=== PATIENT | male | born 1975 | race American Indian/Alaskan Native ===

== ENCOUNTER 2018-03-12 17:21 | Emergency (ER) ==
[2018-03-12 17:22] VITALS: BMI 27.1
[2018-03-12 17:28] VITALS: TEMP 97.6
--- NOTE | 2018-03-12 19:08 | ED.PDOC ---
General ED Provider: Dr. HUSSEIN ABURTO Stated Complaint: Severe sinus infection. Onset 2 weeks; Contacted Dr Simon office and was prescribed Amoxicillin and has taken for past week(day7 of 10). Experiencing severe pain in Rt Frontal sinus region. Time Seen by Physician: 18:40 Mode of Arrival: Walk-In Information Source: Patient Exam Limitations: No limitations Nursing and Triage Documentation Reviewed and Agree: Yes Reviewed sepsis parameters & appropriate labs ordered?: Yes Sepsis Protocol: For patient's 13 years and over: Temp is 96.8 and below OR 101 and greater Pulse >90 BPM Resp >20/minute Acutely Altered Mental Status Are patient's symptoms suggestive of a new infection, such as: -Pneumonia -Skin, Soft Tissue -Endocarditis -UTI -Bone, Joint Infection -Implantable Device -Acute Abdominal Infection -Wound Infection -Meningitis -Blood Stream Catheter Infection -Unknown <HUSSEIN ABURTO - Last Filed: 03/12/18 19:02> ED Provider: Dr. RAJAT ANDRADE System Inflammatory Response Syndrome: Not Applicable Sepsis Protocol: For patient's 13 years and over: Temp is 96.8 and below OR 101 and greater Pulse >90 BPM Resp >20/minute Acutely Altered Mental Status Are patient's symptoms suggestive of a new infection, such as: -Pneumonia -Skin, Soft Tissue -Endocarditis -UTI -Bone, Joint Infection -Implantable Device -Acute Abdominal Infection -Wound Infection -Meningitis -Blood Stream Catheter Infection -Unknown <RAJAT ANDRADE - Last Filed: 03/12/18 21:15> Chief Complaint: Non-specific Complaint EENT Complaint Exam - Nasal Complaint/Exam Onset/Duration: 2 weeks Symptoms Are: Still present Timing: Constant Initial Severity: Severe Current Severity: Severe Location: Right Aggravating: Reports: None Alleviating: Reports: None Associated Signs and Symptoms: Reports: Nasal congestion. Denies: Bruising, Hematuria, Hematochezia, Sinus pain, Nasal discharge, Foreign body, Abnormal coags Nasal Surgical History: Reports: None Foreign Body Present: No Differential Diagnoses: Hypertension, Sinusitis <HUSSEIN ABURTO - Last Filed: 03/12/18 19:02> Review of Systems - Review Of Systems Constitutional: Reports: No symptoms Eyes: Reports: No symptoms Ears, Nose, Mouth, Throat: Reports: Ear pain, Nose discharge. Denies: Throat pain, Throat swelling Respiratory: Reports: No symptoms Cardiac: Reports: No symptoms GI: Reports: No symptoms : Reports: No symptoms Musculoskeletal: Reports: No symptoms Skin: Reports: No symptoms Neurological: Reports: No symptoms <HUSSEIN ABURTO - Last Filed: 03/12/18 19:02> - Review Of Systems Constitutional: Reports: No symptoms Eyes: Reports: No symptoms Respiratory: Reports: No symptoms Cardiac: Reports: No symptoms GI: Reports: No symptoms : Reports: No symptoms Musculoskeletal: Reports: No symptoms Skin: Reports: No symptoms Neurological: Reports: Headache Endocrine: Reports: No symptoms Hematologic/Lymphatic: Reports: No symptoms All Other Systems: Reviewed and Negative <SEJALCLAUDIARAJAT Last Filed: 03/12/18 21:15> Past Medical History - Past Medical History Endocrine: Reports: None Cardiovascular: Reports: Hypertension Respiratory: Reports: None Hematological: Reports: None Gastrointestinal: Reports: None Genitourinary: Reports: None Neuro/Psych: Reports: None, Migraine, Other (cluster headaches) Musculoskeletal: Reports: None Cancer: Reports: None - Social History Smoking Status: Former smoker Hx Substance Use: No Alcohol Screening: None - Immunizations Tetanus Shot up to Date: Yes <HUSSEIN ABURTO - Last Filed: 03/12/18 19:02> - Past Medical History Previously Healthy: Yes Endocrine: Reports: None Cardiovascular: Reports: Hypertension Respiratory: Reports: None Hematological: Reports: None Gastrointestinal: Reports: None Genitourinary: Reports: None Neuro/Psych: Reports: Migraine, Other Musculoskeletal: Reports: None Cancer: Reports: None - Surgical History General Surgical History: Reports: None - Family History Family History: Reports: None <JOVITARAJAT Last Filed: 03/12/18 21:15> Physical Exam - Physical Exam Appearance: Well-appearing, No pain distress, Well-nourished Ill-appearing: Moderate Pain Distress: Moderate Eyes: PILY, EOMI, Conjunctiva clear ENT: Ears normal, Oropharynx normal, Rhinorrhea (marked tenderness to palpation rt frontal sinus to mid forehead region ), Erythema Neck: Supple Respiratory: Airway patent, Breath sounds clear, Breath sounds equal, Respirations nonlabored Cardiovascular: RRR, Pulses normal, No rub, No murmur GI/: Soft, Nontender, No masses, Bowel sounds normal, No Organomegaly Musculoskeletal: Normal strength, ROM intact, No edema, No calf tenderness Skin: Warm, Dry, Normal color Neurological: Sensation intact, Motor intact, Reflexes intact, Cranial nerves intact, Alert, Oriented Psychiatric: Affect appropriate, Mood appropriate <HUSSEIN ABURTO - Last Filed: 03/12/18 19:02> Interpretation - Radiology Interpretation Radiology Interpretation By: Radiologist Radiology Results: Positive (paranasal sinusitis) <RAJAT ANDRADE - Last Filed: 03/12/18 21:15> Re-Evaluation - Re-Evaluation Time of Re-Evaluation: 21:12 Status: Improved <RAJAT ANDRADE - Last Filed: 03/12/18 21:15> Physician Notification - Case Discussed Physician Notified: Dr Andrade -advised of case, treatment,/agrees to assume mgt <HUSSEIN ABURTO - Last Filed: 03/12/18 19:02> Critical Care Note - Critical Care Note Total Time (mins): 30 <RAJAT ANDRADE - Last Filed: 03/12/18 21:15> Course - Course Vital Signs: Temp Pulse Resp BP Pulse Ox 03/12/18 17:22 97.6 F 103 H 20 186/141 H 99 <HUSSEIN ABURTO - Last Filed: 03/12/18 19:02> - Course Hematology/Chemistry: 03/12/18 19:37 03/12/18 19:37 Orders, Labs, Meds: Lab Review 03/12/18 03/12/18 19:37 19:37 WBC 18.08 H RBC 5.54 Hgb 16.6 Hct 46.4 MCV 83.8 MCH 30.0 MCHC 35.8 H RDW Coeff of [place] 13.2 Plt Count 369 Immature Gran % (Auto) 1.3 Neut % (Auto) 71.5 Lymph % (Auto) 13.7 [place] % (Auto) 5.6 Eos % (Auto) 7.6 H Baso % (Auto) 0.3 Immature Gran # (Auto) 0.2 Neut # (Auto) 12.9 H Lymph # (Auto) 2.5 [place] # (Auto) 1.0 Eos # (Auto) 1.4 H Baso # (Auto) 0.1 Sodium 139 Potassium 3.6 Chloride 106 Carbon Dioxide 20 L Anion Gap 16.6 BUN 12 Creatinine 0.82 Estimated GFR (MDRD) 103.00 BUN/Creatinine Ratio 14.63 Glucose 101 H Calcium 10.0 Total Bilirubin 0.6 AST 21 ALT 60 Alkaline Phosphatase 70 Total Protein 7.7 Albumin 4.2 Globulin 3.5 Albumin/Globulin Ratio 1.20 Orders Category Date Time Status IV [ED IV/MEDIPORT/POWERPORT] .ONCE EMERGENCY 03/12/18 19:16 Active BLOOD CULTURE (ED ONLY) Stat LAB 03/12/18 19:37 Received CBC W/ AUTO DIFF Stat LAB 03/12/18 19:37 Completed CMP [COMPREHENSIVE METABOLIC PANEL] Stat LAB 03/12/18 19:37 Completed 0.9 % Sodium Chloride [Saline Flush] MEDS 03/12/18 19:16 Ordered 1 syr IVF PRN PRN Ampicillin Sodium/Sulbactam Na [Unasyn] MEDS 03/12/18 19:26 Discontinued 3 gm .ROUTE .STK-MED ONE Ampicillin Sodium/Sulbactam Na [Unasyn] 3 gm MEDS 03/12/18 19:18 Discontinued 0.9 % Sodium Chloride [Sodium Chloride] 100 ml IV ONCE Clonidine HCl [Catapres] MEDS 03/12/18 19:17 Discontinued 0.1 mg PO ONCE STA Dexamethasone 4 mg/ml Inj [Decadron 4 mg/ml Sdv] MEDS 03/12/18 19:19 Discontinued 4 mg IVP ONCE STA Sodium Chloride 0.9% [Sodium Chloride] 1,000 ml MEDS 03/12/18 19:[address] HEAD W/O CONTRAST Stat RADS 03/12/18 19:[address] SINUSES W/O CONTRAST Stat RADS 03/12/18 19:14 Completed Medications Generic Name Dose Route Start Last Admin Trade Name Freq PRN Reason Stop Dose Admin Sodium Chloride 1,000 mls @ 250 mls/hr 03/12/18 19:16 03/12/18 19:49 Sodium Chloride IV 03/12/18 23:15 250 mls/hr BOLUS STA Administration Sodium Chloride 1 syr 03/12/18 19:16 03/12/18 19:48 Saline Flush IVF 1 syr PRN PRN Administration To flush IV Discontinued Medications Generic Name Dose Route Start Last Admin Trade Name Freq PRN Reason Stop Dose Admin Clonidine 0.1 mg 03/12/18 19:17 03/12/18 19:47 Catapres PO 03/12/18 19:18 0.1 mg ONCE STA Administration Dexamethasone Sodium Phosphate 4 mg 03/12/18 19:19 03/12/18 19:48 Decadron 4 Mg/Ml Sdv IVP 03/12/18 19:20 4 mg ONCE STA Administration Ampicillin Sodium/Sulbactam 100 mls @ 100 mls/hr 03/12/18 19:18 03/12/18 19: 49 Sodium 3 gm/ Sodium Chloride IV 03/12/18 20:17 100 mls/hr ONCE STA Administration Vital Signs: Temp Pulse Resp BP Pulse Ox 03/12/18 21:10 138/94 H 03/12/18 17:22 97.6 F 103 H 20 186/141 H 99 <RAJAT ANDRADE - Last Filed: 03/12/18 21:15> Departure <HUSSEIN ABURTO - Last Filed: 03/12/18 19:02> - Departure Time of Disposition: 21:13 Pt referred to PMD for follow-up: Yes IPMP verified?: No Disposition Discussed With: Patient, Family <RAJAT ANDRADE - Last Filed: 03/12/18 21:15> - Departure Disposition: HOME SELF-CARE Discharge Problem: Headache, Sinusitis Hypertension Qualifiers: Hypertension type: essential hypertension Qualified Code(s): I10 - Essential ( primary) hypertension Condition: Stable Additional Instructions: Tylenol prn Increase Hydration probiotics Prescriptions: Cephalexin [Keflex] 500 mg PO Q12HR #14 capsule Prednisone 10 mg PO BIDWM #14 tablet Allergies/Adverse Reactions: Allergies No Known Allergies Allergy (Unverified 03/12/18 17:25) Home Medications: Ambulatory Orders Cephalexin [Keflex] 500 mg PO Q12HR #14 capsule 03/12/18 Prednisone 10 mg PO BIDWM #14 tablet 03/12/18
[2018-03-12] MEDS ORDERED: SODIUM CHLORIDE 1,000 ML IV STA (19:16)
[2018-03-12] MEDS ORDERED: CATAPRES PO STA (19:17)
[2018-03-12] MEDS ORDERED: UNASYN 3 GM in SODIUM CHLORIDE 100 ML IV STA (19:18)
[2018-03-12] MEDS ORDERED: DECADRON 4 MG/ML SDV IVP STA (19:19)
[2018-03-12] MEDS ORDERED: UNASYN ONE (19:26)
--- NOTE | 2018-03-12 20:06 | CT ---
EXAM: CT scan brain without contrast HISTORY: Headache COMPARISON: CT scan brain 05/21/2013 FINDINGS: Contiguous axial images were obtained from the skull base through the convexities without contrast utilizing 5-mm collimation. Sagittal and coronal reconstructions were imaged and reviewed.. The ventricles and CSF spaces are within normal limits. There are no acute intracranial findings. The visualized paranasal sinuses and mastoid air cells are clear. IMPRESSION: No acute intracranial findings
--- NOTE | 2018-03-12 20:06 | CT ---
EXAM: CT of the sinuses without contrast. HISTORY: Sinus pressure and congestion. Headache. PROCEDURE: Contiguous axial CT images of the sinuses without contrast with coronal and sagittal refo rmats. FINDINGS: There is minimal mucosal thickening in the frontal sinuses, ethmoid air cells, sphenoid sin us and maxillary sinuses. There is mucosal thickening narrowing the infundibulum of the right ostiom eatal complex and left ostiomeatal complex. The nasal turbinates are normal in appearance. The nasal septum is midline. The bones are intact. The orbits are normal in appearance. Impression: Paranasal sinusitis as described.
[2018-03-12 21:10] VITALS: BP 138/94
== END 2018-03-12 21:20 | disposition home or self-care (01) ==
LOC: ED 17:21
DX: J32.9 Chronic sinusitis, unspecified (principal); R51 Headache; I10 Essential (primary) hypertension
CPT/HCPCS: 36415; 80053; 85025; 87040; 96361; 96365; 96366; 96375; 99283

== ENCOUNTER 2019-01-07 14:14 | Emergency (ER) ==
[2019-01-07 14:17] VITALS: TEMP 97.8; BMI 27.9
--- NOTE | 2019-01-07 14:30 | ED.PDOC ---
General ED Provider: Dr. HUSSEIN ABURTO Chief Complaint: Chest Pain Stated Complaint: Chest Pain. The patient is a 43 y/o male who describes an onset of pain/burning to the mid chest in the past week. He states the burning has become worse over past few days. Denies prior episodes. Complains of experiencing a frequent cough-non productive. Denies nausea or vomiting. Appears very anxious Time Seen by Physician: 14:30 Mode of Arrival: Walk-In Information Source: Patient Exam Limitations: No limitations Primary Care Provider: SHAWN NICHOLS Nursing and Triage Documentation Reviewed and Agree: Yes Does patient meet sepsis criteria?: No System Inflammatory Response Syndrome: Not Applicable Sepsis Protocol: For patient's 13 years and over: Temp is 96.8 and below OR 101 and greater Pulse >90 BPM Resp >20/minute Acutely Altered Mental Status Are patient's symptoms suggestive of a new infection, such as: -Pneumonia -Skin, Soft Tissue -Endocarditis -UTI -Bone, Joint Infection -Implantable Device -Acute Abdominal Infection -Wound Infection -Meningitis -Blood Stream Catheter Infection -Unknown Cardiovascular Complaint Exam - Chest Pain Complaint/Exam Onset: Gradual Symptoms Are: Still present Timing: Intermittent Initial Severity: Mild Current Severity: Moderate Location: Reports: Midsternal Pain Radiates: Reports: None Character: Reports: Aching, Sharp, Stabbing Aggravating: Reports: Movement, Deep breaths Alleviating: Reports: Rest Associated Signs and Symptoms: Denies: Diaphoresis, Nausea, Vomiting, Fever, Palpitations, Cough, Hemoptysis, Back pain, Abdominal pain, Dizziness, Short of air, Calf pain, Calf swelling Related History: Denies: Similar episode Related Surgical History: Reports: None AMI/ACS Risk Factors: Reports: None TAD Risk Factors: Reports: None Pulmonary Embolism Risk Factors: Reports: None Prior Care for this Complaint: No Recent Stress Test: No Recent Echo/LV Function: No JVD Present: No Subcutaneous Emphysema Present: No Diminshed Breath Sounds: No Reproducible Chest Wall Pain: Yes Bilateral Pulses Present: Yes Unequal Pulses Noted: No Review of Systems - Review Of Systems Constitutional: Reports: No symptoms Eyes: Reports: No symptoms Ears, Nose, Mouth, Throat: Reports: No symptoms Respiratory: Reports: No symptoms Cardiac: Reports: Chest pain GI: Reports: No symptoms : Reports: No symptoms Musculoskeletal: Reports: No symptoms Skin: Reports: No symptoms Neurological: Reports: Anxiety, Emotional problems Endocrine: Reports: No symptoms Hematologic/Lymphatic: Reports: No symptoms All Other Systems: Reviewed and Negative Past Medical History - Past Medical History Previously Healthy: Yes Endocrine: Reports: None Cardiovascular: Reports: Hypertension Respiratory: Reports: None Hematological: Reports: None Gastrointestinal: Reports: None Genitourinary: Reports: None Neuro/Psych: Reports: Migraine, Other Musculoskeletal: Reports: None Cancer: Reports: None - Surgical History General Surgical History: Reports: None - Family History Family History: Reports: None - Social History Smoking Status: Former smoker Hx Substance Use: No Alcohol Screening: None Physical Exam - Physical Exam Appearance: Well-appearing, No pain distress, Well-nourished Eyes: PILY, EOMI, Conjunctiva clear ENT: Ears normal, Nose normal, Oropharynx normal Respiratory: Airway patent, Breath sounds clear, Breath sounds equal, Respirations nonlabored Cardiovascular: RRR, Pulses normal, No rub, No murmur GI/: Soft, Nontender, No masses, Bowel sounds normal, No Organomegaly Musculoskeletal: Normal strength, ROM intact, No edema, No calf tenderness Skin: Warm, Dry, Normal color Neurological: Sensation intact, Motor intact, Reflexes intact, Cranial nerves intact, Alert, Oriented Psychiatric: Affect appropriate, Mood appropriate Interpretation - Radiology Interpretation Exam Interpreted: CXR Xray Comments: Normal findings Critical Care Note - Critical Care Note Total Time (mins): 60 Course - Course Hematology/Chemistry: 01/07/19 14:35 01/07/19 14:35 Orders, Labs, Meds: Lab Review 01/07/19 01/07/19 01/07/19 14:35 14:35 14:35 WBC 10.98 H RBC 5.50 Hgb 16.4 Hct 47.6 MCV 86.5 MCH 29.8 MCHC 34.5 RDW Coeff of [place]illa 14.3 Plt Count 409 Immature Gran % (Auto) 0.5 Neut % (Auto) 68.6 Lymph % (Auto) 19.6 [place] % (Auto) 9.4 Eos % (Auto) 0.8 Baso % (Auto) 1.1 Immature Gran # (Auto) 0.1 Neut # (Auto) 7.5 H Lymph # (Auto) 2.2 [place] # (Auto) 1.0 Eos # (Auto) 0.1 Baso # (Auto) 0.1 ESR 2 Sodium 139.8 Potassium 3.39 L Chloride 107.4 H Carbon Dioxide 19.2 L Anion Gap 16.59 BUN 12.7 Creatinine 0.78 Estimated GFR (MDRD) 108.00 BUN/Creatinine Ratio 16.28 Glucose 112.3 H Calcium 9.51 Total Bilirubin 0.72 AST 30.2 ALT 38.6 Alkaline Phosphatase 57.5 Total Creatine Kinase 77.7 Troponin I 0.098 Total Protein 7.68 Albumin 5.10 H Globulin 2.58 Albumin/Globulin Ratio 1.97 Urine Color Urine Clarity Urine pH Ur Specific [place] Urine Protein Urine Glucose (UA) Urine Ketones Urine Blood Urine Nitrite Urine Bilirubin Urine Urobilinogen Ur Leukocyte Esterase Urine Opiates Screen Ur Oxycodone Screen Urine Methadone Screen Ur Propoxyphene Screen Ur Barbiturates Screen U Tricyclic Antidepress Ur Phencyclidine Scrn Ur Amphetamine Screen U Methamphetamines Scrn U Benzodiazepines Scrn Urine Cocaine Screen U Cannabinoids Screen 01/07/19 01/07/19 14:50 14:50 WBC RBC Hgb Hct MCV MCH MCHC RDW Coeff of [place] Plt Count Immature Gran % (Auto) Neut % (Auto) Lymph % (Auto) [place] % (Auto) Eos % (Auto) Baso % (Auto) Immature Gran # (Auto) Neut # (Auto) Lymph # (Auto) [place] # (Auto) Eos # (Auto) Baso # (Auto) ESR Sodium Potassium Chloride Carbon Dioxide Anion Gap BUN Creatinine Estimated GFR (MDRD) BUN/Creatinine Ratio Glucose Calcium Total Bilirubin AST ALT Alkaline Phosphatase Total Creatine Kinase Troponin I Total Protein Albumin Globulin Albumin/Globulin Ratio Urine Color Yellow Urine Clarity Clear Urine pH 7.0 Ur Specific [place] 1.015 Urine Protein Negative Urine Glucose (UA) Negative Urine Ketones Negative Urine Blood Negative Urine Nitrite Negative Urine Bilirubin Negative Urine Urobilinogen 2.0 Ur Leukocyte Esterase Negative Urine Opiates Screen Negative Ur Oxycodone Screen Negative Urine Methadone Screen Negative Ur Propoxyphene Screen Negative Ur Barbiturates Screen Negative U Tricyclic Antidepress Negative Ur Phencyclidine Scrn Negative Ur Amphetamine Screen Negative U Methamphetamines Scrn Negative U Benzodiazepines Scrn Positive Urine Cocaine Screen Negative U Cannabinoids Screen Positive Orders Category Date Time Status EKG-(ED ONLY) Stat CARDIO 01/07/19 14:26 Completed CBC W/ AUTO DIFF Stat LAB 01/07/19 14:35 Completed CMP [COMPREHENSIVE METABOLIC PANEL] Stat LAB 01/07/19 14:35 Completed CPK [CREATINE KINASE] Stat LAB 01/07/19 14:35 Completed ESR Stat LAB 01/07/19 14:35 Completed TROPONIN I Stat LAB 01/07/19 14:35 Completed UA [URINALYSIS C & S IF INDICATED] Stat LAB 01/07/19 14:50 Completed URINE DRUG SCREEN (RAPID FOR ED) [DRUG SCREEN, URINE, LAB 01/07/19 14:50 Completed RAPID] Stat CHEST, 1V AP ONLY Stat RADS 01/07/19 14:29 Completed Vital Signs: Temp Pulse Resp BP Pulse Ox 01/07/19 17:01 94 H 18 125/94 H 99 01/07/19 15:15 96 H 20 133/94 H 99 01/07/19 14:14 97.8 F 110 H 20 182/124 H 99 JEFE Risk Score JEFE Risk Score: Risk Score Odds of by 30D 0 0.1 (0.1-0.2) 1 0.3 (0.2-0.3) 2 0.4 (0.3-0.5) 3 0.7 (0.6-0.9) 4 1.2 (1.0-1.5) 5 2.2 (1.9-2.6) 6 3.0 (2.5-3.6) 7 4.8 (3.8-6.1) Departure - Departure Time of Disposition: 17:15 Disposition: HOME SELF-CARE Discharge Problem: Panic attack as reaction to stress, Anterior chest wall pain Instructions: Chest Pain (ED), Anxiety (ED), Panic Attack (ED) Condition: Good Pt referred to PMD for follow-up: Yes IPMP verified?: No Additional Instructions: Remain on anti anxiety meds Suggest Counseling with therapist Follow up PCP Remain on current meds Allergies/Adverse Reactions: Allergies No Known Allergies Allergy (Verified 01/07/19 14:18) Home Medications: Ambulatory Orders Alprazolam [Xanax] 0.5 mg PO BID 01/07/19 Disposition Discussed With: Patient
--- NOTE | 2019-01-07 14:58 | DI ---
EXAM: CHEST FRONTAL VIEW HISTORY: Chest pain. COMPARISON: None FINDINGS: Heart size and mediastinum within normal limits. Lungs are free of infiltrate. No c onsolidation or pleural fluid. There is no pneumothorax or acute bony finding. IMPRESSION: Findings within normal limits.
[2019-01-07 17:01] VITALS: BP 125/94
== END 2019-01-07 17:35 | disposition home or self-care (01) ==
LOC: ED 14:14
DX: F41.0 Panic disorder [episodic paroxysmal anxiety] (principal); R07.89 Other chest pain; I10 Essential (primary) hypertension
CPT/HCPCS: 36415; 80053; 80306; 81001; 82550; 84484; 85025; 85651; 93005; 93010; 99284